=== PATIENT | male | born 2000 | race Caucasian/White ===

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

== ENCOUNTER 2024-10-02 15:42 | Emergency (ER) | payer OTHER, SELFPAY ==
[2024-10-02 15:53] LABS: Microscopic, Urine URINE MICROSCOPIC (MICROSCOPIC)
[2024-10-02 15:57] LABS: Appearance,Urine CLEAR (Clear); Bilirubin,Urine Negative (Negative); Blood, Urine Negative (Negative); Color,Urine YELLOW (Yellow); Glucose,Urine (UA) Negative (Negative); Ketones,Urine Negative (Negative); Leukocyte Esterase,Urine Negative (Negative); Nitrate,Urine Negative (Negative); Protein,Urine Negative (Negative); Urobilinogen,Urine 0.2 EU/dl (0.2)
[2024-10-02 15:58] VITALS: BP 153/84; PULSE 75; RESP 16; TEMP 37.2; O2SAT 97; BMI 21.2
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
[2024-10-02] MEDS: LIDOCAINE 1% 5ML PF VIAL IM (16:06)
[2024-10-02] MEDS: cefTRIAXone 500MG VIAL 500 MG IM (16:06)
[2024-10-02 16:13] LABS: Bacteria,Urine Trace /lpf; RBC,Urine Occasional #/hpf (0-3); WBC,Urine Occasional #/hpf (0-3)
[2024-10-02 16:57] VITALS: BP 147/75; PULSE 89; RESP 16; TEMP 37.1; O2SAT 97
[2024-10-03 00:12] LABS: Chlamydia trachomatis Negative (Negative); Neisseria gonorrhoeae Negative (Negative); Trichomonas vaginalis Negative (Negative)
== END 2024-10-02 16:58 | disposition home or self-care (01) ==
PROVIDERS: Physician Assistant; Emergency Provider Emergency Medicine
DX: N34.2 Other urethritis (principal)
CPT/HCPCS: 81001; 87491; 87591; 87661; 96372; 99283; J0696; J2003